=== PATIENT | female | born 1990 | race Caucasian/White ===

== ENCOUNTER 2017-12-05 21:06 | Emergency (ER) | payer MEDICAID ==
[~2017-12-05] VITALS: Ht 152.4 cm; Wt 40.8 kg
[2017-12-05 21:18] VITALS: BP 115/79
[2017-12-06] MEDS ORDERED: BENZOCAINE (DENTAL) 20 % SPRAY 60ML MT ONE (01:00)
[2017-12-06] MEDS ORDERED: GLUCAGON HYDROCHLORIDE (RDNA) 1 MG VIAL IM ONE (01:30)
== END 2017-12-06 01:50 | disposition home or self-care (01) ==
LOC: ER 21:06
DX: T17.228A Food in pharynx causing other injury, initial encounter (principal); X58.XXXA Exposure to other specified factors, initial encounter; Y93.89 Activity, other specified; Y92.89 Other specified places as the place of occurrence of the external cause; Y99.8 Other external cause status
CPT/HCPCS: 70490